=== PATIENT | female | born 1965 | race Hispanic/Latino ===

== ENCOUNTER 2024-10-25 22:00 | Emergency (ER) | payer BC ==
[~2024-10-25] VITALS: Ht 160 cm; Wt 72.6 kg
[2024-10-25] MEDS ORDERED: HYDROcodone/APAP 5/325 1 TAB TABLET PO ONE (23:30)
[2024-10-25] MEDS ORDERED: AMOX1TAB16 PO (23:49)
--- NOTE | 2024-10-25 23:50 | ERN ---
General Chief Complaint: Laceration/Avulsion Stated Complaint: LACERATION RT LOWER LEG Time Seen by MD: 22:28 Time Seen by Midlevel: 22:28 Source: patient History of Present Illness Initial Comments Patient is a 58-year-old female presenting to the emergency department for evaluation of a laceration to her right lower leg. The patient states she was throwing her trash when she was accidentally cut by something sharp that was in her trash bag. Patient is up-to-date with the tetanus vaccination with last vaccine administered three years ago Allergies: Coded Allergies: No Known Allergies (Unverified Allergy, Unknown, 10/25/24) Past Medical History Past Medical History: No Pertinent History Past Surgical History: ROS Dictation CONSTITUTIONAL: Negative except for HPI HEAD/FACE: Negative except for HPI EENT: Negative except for HPI RESPIRATORY: Negative except for HPI GASTROINTESTINAL/ABDOMINAL: Negative except for HPI GENITOURINARY: Negative except for HPI MUSCULOSKELETAL: Negative except for HPI INTEGUMENTARY: Negative except for HPI NEUROLOGICAL/PSYCH: Negative except for HPI HEMATOLOGIC/LYMPHATIC: Negative except for HPI All Systems Negative, Except as noted above. 13 point review of systems assessed and all negative except for above. Physical Exam Physical Exam Dictation Vital Signs reviewed General Appearance: Alert, oriented x 3, no acute distress, well developed, nourished. Head and Face: non-traumatic. Eyes: PERRL, pink conjunctivas, eyelid no trauma, anterior chamber with arcus senilis. Ears: Pinnas intact and no signs of trauma or erythema ear canals clear and no discharge TM no erythema Nose: No discharge, no bleeding. Oropharynx: Mouth normal, tongue pink, pharynx clear,no erythema, tonsils no exudates, no abscesses noted, mucous membrane moist Neck: Supple, non-tender, no thyromegaly, no masses, no JVD, no bruits Breast:Deferred Chest:No tenderness, no crepitus, no paradoxical movement, no retractions Lungs:Clear, well-ventilated, symmetric, no rales, no wheezing, no rhonchi, no stridor, good breath sounds bilaterally Heart: Regular rate, regular rhythm, no murmur, no gallops Vascular: no peripheral edema, Abdomen: Soft, positive bowel sounds, nondistended, no guarding, nontender, no rebound, no masses no hepatomegaly, no splenomegaly, no Bonilla's sign, no hernias. Rectal: Deferred Genital: Deferred Neurological: Normal speech, motor function intact, sensory function intact Musculoskeletal: Neck nontender, full range of motion, back nontender, full range of motion, Extremities: nontender, full range of motion Skin: 4 cm linear laceration to the right lower leg Lymphatic: Deferred MDM MDM: Differential diagnosis: Laceration, abrasion, contusion There are no social concerns with this patient. Prescription drug management Prescriptions will include: Amoxicillin Medical management and examination interpretation discussions were had by me with other qualified healthcare professionals as indicated for the patient's care. ED Course Orders Procedure Category Date Status Time Hydrocodone/Apap PHA 10/25/24 Complete 5/325 ([place] 5/325mg) 23:30 Current Medications Medications (Trade) Dose Ordered Sig/Alok Route PRN Reason Start Time Stop Time Status Last Admin Dose Admin Acetaminophen/ Hydrocodone Bitart (NORco 5/325MG) 1 tab ONCE ONCE PO 10/25/24 23:30 10/25/24 23:13 DC Vital Signs Date Time Temp Pulse Resp B/P (MAP) Pulse Ox O2 Delivery O2 Flow Rate FiO2 10/25/24 22:33 98.2 65 16 145/79 98 Room Air* 0 21 10/25/24 22:01 97.5 67 20 144/79 97 Room Air Procedure Dictation Procedure Name: Laceration Repair Indication: Reduce risk of infection Location: 4 cm linear laceration to the right lateral lower leg Pre-Procedure Diagnosis: Laceration Post-Procedure Diagnosis: Repaired Laceration Informed consent was obtained before procedure started. PROCEDURE: The appropriate timeout was taken. The area was prepped and draped in the usual sterile fashion. Local anesthesia was achieved using 2cc of Lidocaine without epinephrine. The wound was copiously irrigated. 9 4-0 Ethilon simple interrupted sutures were placed. Estimated blood loss was less than 0.5 mL. A dressing was applied to the area and anticipatory guidance, as well as standard post-procedure care, was explained. Return precautions are given. The patient tolerated the procedure well without complications. Follow-up visit set for suture removal and evaluation of the laceration. DX & DISP Disposition: Discharge Departure Impression: Primary Impression: Laceration of right lower leg Condition: Stable Scripts Amoxicillin/Potassium Clav (Amox Tr-K Clv 875-125 mg Tab) 875 Mg-125 Mg Tablet 1 EACH PO BID for 5 Days, #10 TAB 0 Refills Prov: DARRIAN GARCIA 10/25/24 Additional Instructions: Your laceration was successfully repaired with nine sutures. These will need to be removed in seven days. I have given you a prescription for oral antibiotics to prevent an infection. You may follow up with your primary care doctor or return to the ER in seven days for suture removal. Referrals: SELF,REFERRAL (PCP) I have reviewed the case, and I agree with, Diagnosis and Plan I performed the substantive portion of the visit. I have reviewed and personally made and approve the management plan that is documented in the note by myself or the CHRISTIAN. I acknowledge for responsibility for the patient's management plan. DARRIAN GARCIA Oct 25, 2024 23:50
--- NOTE | 2024-10-25 23:57 | NUR ---
9 SUTURES PLACES TO RIGHT CALF WOUND CLEAN AND DRY DRESSED PER PA REQUEST NONADHEARENT DRESSING AND WRAPPED INSTRUCTED PT ADVISED SUTURES TO BE REMOVED 7-10 DAYS
[2024-10-25 23:59] VITALS: BP 140/72; PULSE 65; RESP 16; TEMP 98.3; O2SAT 98
== END 2024-10-26 00:04 | disposition home or self-care (01) ==
LOC: EDH 22:00
DX: S81.811A Laceration without foreign body, right lower leg, initial encounter (principal); W26.8XXA Contact with other sharp object(s), not elsewhere classified, initial encounter; Y93.89 Activity, other specified; Y92.89 Other specified places as the place of occurrence of the external cause; Y99.8 Other external cause status
CPT/HCPCS: 12002; 99283